=== PATIENT | male | born 1980 | race Hispanic/Latino ===

== ENCOUNTER 2021-08-23 10:58 | Emergency (ER) | payer SELFPAY ==
[~2021-08-23] VITALS: Ht 170.2 cm; Wt 83.9 kg
[2021-08-23 11:16] VITALS: BP 114/70
[2021-08-23] MEDS ORDERED: CYCLOBENZAPRINE HCL 10 MG TABLET PO ONE (12:00)
[2021-08-23] MEDS ORDERED: KETOROLAC 60 MG VIAL (30MG/ML) IM ONE (12:00)
[2021-08-23] MEDS ORDERED: CYCL10TA16 PO (12:40)
[2021-08-23] MEDS ORDERED: MELO7.5T12 PO (12:40)
== END 2021-08-23 14:42 | disposition home or self-care (01) ==
LOC: EDH 10:58
DX: M54.41 Lumbago with sciatica, right side (principal); Z79.1 Long term (current) use of non-steroidal anti-inflammatories (NSAID)
CPT/HCPCS: 72100; 96372; 99283; J1885